=== PATIENT | male | born 1950 | race Caucasian/White ===

== ENCOUNTER 2022-02-06 08:06 | Emergency (ER) | payer OTHER ==
[~2022-02-06] VITALS: Ht 172.7 cm; Wt 82.0 kg
[2022-02-06 08:12] VITALS: BP 125/79
== END 2022-02-06 09:12 | disposition home or self-care (01) ==
LOC: ER 08:06
DX: F32.A Depression, unspecified (principal); G47.00 Insomnia, unspecified
CPT/HCPCS: 99283

== ENCOUNTER 2025-05-18 14:03 | Emergency (ER) | payer OTHER ==
[~2025-05-18] VITALS: Ht 165.1 cm; Wt 78.0 kg
[2025-05-18 14:42] VITALS: O2SAT 99
[2025-05-18] MEDS ORDERED: ACET-2708 MT (17:55)
[2025-05-18] MEDS ORDERED: LIDO-53 TP (17:55)
[2025-05-18] MEDS: KETOROLAC 30MG/ML VIAL IM ONE (18:45)
[2025-05-18] MEDS: LIDOCAINE 5% PATCH TOP SCH (18:45)
[2025-05-18 18:49] VITALS: BP 159/63; PULSE 66; RESP 18; TEMP 37; O2SAT 100
== END 2025-05-18 18:50 | disposition home or self-care (01) ==
LOC: ER 14:03
DX: M54.9 Dorsalgia, unspecified (principal); I10 Essential (primary) hypertension
CPT/HCPCS: 99284; 73552; 72220; 96372; J1885